=== PATIENT | female | born 1990 ===

== ENCOUNTER 2021-02-02 00:04 | Inpatient (IN) ==
[2021-02-02] MEDS ORDERED: BUTORPHANOL 2 MG/ML VIAL IV PRN (00:39)
[2021-02-02] MEDS ORDERED: FAMOTIDINE 20 MG TABLET PO SCH (01:00)
[2021-02-02 01:14] LABS: Basophils # 0.1 10*3/uL (0.0-0.2); Basophils % 0.5 % (0.0-0.8); Eosinophils # 0.1 10*3/uL (0.0-0.87); Eosinophils % 0.7 % (0.00-10.9); Hematocrit 31.8 VOL% (35.7-47.0); Hemoglobin 10.2 GM/DL (12.0-16.0); Immature Granulocytes % 0.9 %; Immature Granulocytes Absolute 0.09 #; Lymphocytes # 2.5 10*3/uL (1.4-4.0); Lymphocytes % 23.8 % (21.3-54.2); Mean Corpuscular HGB Conc 32.1 GM/DL (32-36); Mean Corpuscular Volume 80.5 FL (87-102); Mean Platelet Volume 12.4 FL (9.6-12.0); Monocytes % 9.9 % (1.7-12.7); Neutrophils % 64.2 % (38.7-73.9); Platelet Count 212 T/CUMM (130-400); Red Blood Count 3.95 MC/CUMM (3.8-5.5); Red Cell Distribution Width 13.9 % (9.3-17.3); White Blood Count 10.4 T/CUMM (4-12)
[2021-02-02] MEDS: ONDANSETRON 4 MG/2 ML VIAL IV PRN ×2 (01:25→11:21)
[2021-02-02 01:29] LABS: Alanine Aminotransferase 12 U/L (13-56); Albumin 2.4 G/DL (3.4-5.0); Alkaline Phosphatase 132 U/L (45-117); Aspartate Amino Transferase 20 U/L (0-37); Bilirubin,Total < 0.39 MG/DL (0.20-1.00); Blood Urea Nitrogen 14 MG/DL (7-18); Calcium 10.4 MG/DL (8.5-10.1); Carbon Dioxide 20 MMOL/L (21-32); Estimated Glom Filtration Rate 114 ML/MIN; Glucose 87 MG/DL (74-106); Osmolality,Calculated 267.2 MOS/KG (273-304); Potassium 4.1 MMOL/L (3.5-5.1); Sodium 134 MMOL/L (136-145); Total Protein 6.7 G/DL (6.4-8.2)
[2021-02-02 01:40] LABS: INR 0.9; PT Patient Result 10.3 SECS (10.5-12.0); Partial Thromboplastin Time 25.4 SECS (23.9-33.8)
[2021-02-02] MEDS ORDERED: INFLUENZA VIRUS VACCINE 0.5 ML SYRINGE IM ONE (01:46)
[2021-02-02 01:48] LABS: Bilirubin,Direct < 0.050 MG/DL (0.0-0.20); Uric Acid 7.5 MG/DL (2.6-6.0)
[2021-02-02 04:08] LABS: Protein/Creatinine Ratio,Urine 0.2 RATIO
[2021-02-02] MEDS: LACTATED RINGERS 1,000 ML IV SCH ×3 (05:27→10:10)
[2021-02-02] MEDS ORDERED: ONDANSETRON 4 MG/2 ML VIAL IV ONE (08:51)
[2021-02-02] MEDS ORDERED: hydrOXYzine HCL 25 MG/1 ML VIAL IM PRN (08:51)
[2021-02-02] MEDS ORDERED: diphenhydrAMINE 50 MG/1 ML VIAL IV PRN ×2 (08:51)
[2021-02-02] MEDS ORDERED: PROMETHAZINE 25 MG/1 ML VIAL IM ONE (08:51)
[2021-02-02] MEDS ORDERED: ePHEDrine 50 MG/ML VIAL IV PRN (08:51)
[2021-02-02] MEDS ORDERED: FAMOTIDINE 20 MG/2 ML VIAL IV ONE (08:51)
[2021-02-02] MEDS ORDERED: NALOXONE 0.4 MG/ML VIAL IV PRN (08:51)
[2021-02-02] MEDS ORDERED: CITRIC ACID/SODIUM CITRATE 30 ML UDCUP PO ONE (08:51)
[2021-02-02] MEDS ORDERED: fentaNYL 2 MCG/ROPIV 0.2% EPID 100 ML EPIDURAL SCH (09:00)
[2021-02-02] MEDS: OXYTOCIN/LR 20 UNIT/1,000 ML BAG IV PRN ×2 (09:23→19:30)
[2021-02-02] MEDS: LABETALOL 100 MG TABLET PO SCH ×3 (10:25→22:29)
[2021-02-02 11:43] LABS: Amorphous Crystals,Urine Occasional /HPF (Few); Bilirubin,Urine Negative (Negative); Blood, Urine Negative (Negative); Glucose,Urine (UA) Negative (Negative); Ketones,Urine Negative (Negative); Mucus,Urine Occasional /LPF (Occasional); Nitrite,Urine Negative (Negative); Protein,Urine Negative; RBC,Urine <1 /HPF (0-4); Urine Appearance CLEAR (Clear); Urine Color Straw (Yellow); Urine Specific Gravity 1.005 (1.001-1.035); Urine Urobilinogen < 2.0 EU/DL (0.2-1.0)
[2021-02-02] MEDS ORDERED: TRANEXAMIC ACID 1,000 MG/10 ML VIAL ONE (13:56)
[2021-02-02] MEDS ORDERED: OXYTOCIN/LR 20 UNIT/1,000 ML BAG IV ONE (13:56)
[2021-02-02] MEDS ORDERED: miSOPROStoL 200 MCG TABLET ONE (13:56)
[2021-02-02] MEDS ORDERED: METHYLERGONOVINE 0.2 MG/1 ML AMP ONE (13:57)
[2021-02-02] MEDS ORDERED: CARBOPROST TROMETHAMINE 250 MCG/ML AMP IM ONE (13:57)
[2021-02-02 15:27] LABS: Cord Arterial Blood HCO3 21.2 MMOL/L
[2021-02-02 15:30] LABS: Cord Venous Blood HCO3 19.4 MMOL/L; Cord Venous Blood PCO2 37.2 MMHG; Cord Venous Blood PO2 23.5 MMHG
[2021-02-02] MEDS ORDERED: OXYTOCIN/LR 20 UNIT/1,000 ML BAG IV PRN (15:36)
[2021-02-02] MEDS ORDERED: ACETAMINOPHEN 325 MG TABLET PO PRN (22:14)
[2021-02-02] MEDS ORDERED: oxyCODONE/ACETAMINOPHEN 5-325 MG TABLET PO PRN (22:14)
[2021-02-02] MEDS ORDERED: BISACODYL 10 MG SUPP RECTAL PRN (22:15)
[2021-02-02] MEDS ORDERED: BENZOCAINE 20%/MENTHOL 0.5% SPRAY 56 GM CAN TOP PRN (22:15)
[2021-02-03] MEDS: IBUPROFEN 800 MG TABLET PO PRN ×3 (03:27→19:38)
[2021-02-03] MEDS: LABETALOL 100 MG TABLET PO SCH ×3 (04:10→17:21)
[2021-02-03 05:52] LABS: Basophils # 0.1 10*3/uL (0.0-0.2); Basophils % 0.5 % (0.0-0.8); Eosinophils # 0.1 10*3/uL (0.0-0.87); Eosinophils % 0.7 % (0.00-10.9); Hematocrit 27.8 VOL% (35.7-47.0); Hemoglobin 8.9 GM/DL (12.0-16.0); Immature Granulocytes % 0.6 %; Immature Granulocytes Absolute 0.07 #; Lymphocytes # 2.6 10*3/uL (1.4-4.0); Lymphocytes % 22.3 % (21.3-54.2); Mean Corpuscular Volume 80.8 FL (87-102); Mean Platelet Volume 12.4 FL (9.6-12.0); Monocytes % 8.2 % (1.7-12.7); Neutrophils % 67.7 % (38.7-73.9); Platelet Count 158 T/CUMM (130-400); Red Blood Count 3.44 MC/CUMM (3.8-5.5); White Blood Count 11.6 T/CUMM (4-12)
[2021-02-03 06:40] LABS: Hypochromasia 1+; Microcytosis 1+
[2021-02-03 06:41] LABS: Platelet Estimate Adequate; Polychromasia Slight
[2021-02-03] MEDS: MULTIVITAMIN (PRENATAL) TABLET PO SCH (09:00)
[2021-02-03] MEDS: DOCUSATE SODIUM 100 MG CAPSULE PO SCH ×3 (09:01→21:39)
[2021-02-04] MEDS: LABETALOL 100 MG TABLET PO SCH ×2 (00:03→08:34)
[2021-02-04] MEDS: IBUPROFEN 800 MG TABLET PO PRN (02:28)
[2021-02-04] MEDS: DOCUSATE SODIUM 100 MG CAPSULE PO SCH (08:33)
[2021-02-04] MEDS: MULTIVITAMIN (PRENATAL) TABLET PO SCH (08:34)
[2021-02-04] MEDS ORDERED: DIPH/TET/ACEL PERT BOOSTER VACCINE 0.5 ML VIAL IM ONE (10:38)
[2021-02-04] MEDS ORDERED: INFLUENZA VIRUS VACCINE 0.5 ML SYRINGE IM ONE (11:04)
[2021-02-04 11:18] VITALS: BP 127/77
== END 2021-02-04 12:20 | disposition home or self-care (01) | DRG 807 ==
LOC: N.LD 00:04 → N.OB 21:45
PROVIDERS: ADMIT Obstetrics & Gynecology; ATTEND Obstetrics & Gynecology